=== PATIENT | female | born 1980 | race Caucasian/White ===

== ENCOUNTER 2022-08-06 08:40 | Outpatient (CLI) | payer OTHER, SELFPAY ==
[2022-08-06 18:39] LABS: Alanine Aminotransferase 34 U/L (6-35); Albumin Level 4.3 g/dL (3.5-5.1); Alkaline Phosphatase 65 U/L (38-126); Anion Gap 6 mmol/L (8-16); Aspartate Amino Transferase 32 U/L (14-36); Bilirubin,Total 0.5 mg/dL (0.2-1.3); Blood Urea Nitrogen 17 mg/dL (7-17); Calcium 8.7 mg/dL (8.4-10.2); Carbon Dioxide 26 mmol/L (22-30); Chloride 107 mmol/L (98-107); Cholesterol 191 mg/dL (0-200); Estimated Glomerular Filt Rate > 60; Glucose 110 mg/dL (65-110); HDL Direct 36 mg/dL; Potassium 3.8 mmol/L (3.4-5.0); Sodium 139 mmol/L (137-145); Triglycerides 240 mg/dL (<150)
[2022-08-06 18:50] LABS: LDL Cholesterol Direct 114 mg/dL
[2022-08-06 19:24] LABS: Basophils Absolute Auto 0.1 K/mm3 (0.0-0.1); Basophils Percent Auto 0.8 % (0.2-1.2); Eosinophils Absolute Auto 0.3 K/mm3 (0-0.3); Hematocrit 41.7 % (37.0-47.0); Immature Granulocyte Absolute 0.07 K/mm3 (0.00-0.031); Immature Granulocyte Percent A 0.9 % (0-0.5); Lymphocytes Absolute Auto 2.15 K/mm3 (0.9-3.2); Mean Corpuscular HGB Conc 31.2 g/dl (32-36); Mean Corpuscular Hemoglobin 27.5 pg (26-34); Mean Corpuscular Volume 88.2 fl (80-100); Mean Platelet Volume 10.1 fl (7.4-10.4); Monocytes Absolute Auto 0.8 K/mm3 (0.1-0.6); Monocytes Percent Auto 9.7 % (2.6-8.5); Neutrophils Absolute Auto 4.6 K/mm3 (1.3-6.7); Neutrophils Percent Auto 57.6 % (45.5-73.1); Platelet Count Result 297 k/mm3 (150-375); Red Blood Count 4.73 M/mm3 (4.2-5.4)
[2022-08-06 19:28] LABS: Hemoglobin A1C 5.9 % (<5.7)
== END 2022-08-06 08:41 | disposition home or self-care (01) ==
LOC: ANHGOSHLAB 08:41
PROVIDERS: PCP Family Medicine; Visit Provider Physician Assistant
DX: E03.9 Hypothyroidism, unspecified (principal); E04.0 Nontoxic diffuse goiter; E66.9 Obesity, unspecified; E78.2 Mixed hyperlipidemia; I10 Essential (primary) hypertension
CPT/HCPCS: 36415; 80053; 80061; 83036; 84443; 85025

== ENCOUNTER → 2023-01-01 08:53 | Outpatient (CLI) | payer OTHER, SELFPAY ==
--- NOTE | ~2023-01-01 | XR_ITS ---
XR hip RT min 2V 01/01/2023 09:16 Indication: Right hip pain Procedure: 2 views right hip Comparison: 06/04/2018 Findings: Moderate osteoarthritis the right hip. No fracture or traumatic malalignment. No significan t soft tissue abnormality. No foreign bodies. There is an IUD in the pelvis. Impression: 1: Moderate osteoarthritis of the right hip. Reviewed, dictated and finalized at location B. Impression: 1: Moderate osteoarthritis of the right hip.
--- NOTE | ~2023-01-01 | XR_ITS ---
EXAMINATION: XR lumbar spine 2-3V DATE: 01/01/2023 09:16 INDICATION: Right hip pain. TECHNIQUE: 3 views of lumbar spine were obtained. COMPARISON: None. FINDINGS: There is 7 degrees dextrocurvature of lumbar spine. Vertebral body heights are normal. Inte rvertebral disc heights are normal. There are endplate osteophytes at most levels. There is multileve l facet joint osteoarthritis, severe at multiple levels in lumbar spine. There is an intrauterine dev ice in expected position. Surgical clips in the right upper quadrant are likely from cholecystectomy. IMPRESSION: 1. Mild lumbar spondylosis. Reviewed, dictated and finalized at location E. IMPRESSION: 1. Mild lumbar spondylosis.
== END ==
PROVIDERS: PCP Family Medicine; Visit Provider Physician Assistant
DX: M16.11 Unilateral primary osteoarthritis, right hip (principal); M43.06 Spondylolysis, lumbar region
CPT/HCPCS: 72100; 73502

== ENCOUNTER 2023-01-14 15:49 | Outpatient (RCR) | payer OTHER, SELFPAY ==
--- NOTE | 2023-01-14 17:06 | PTOPEVAL1 ---
Assessment and note entered by Piedad Springer DPT Evaluation Information Diagnosis low back pain, R hip pain Onset 01/01/23 Subjective Information Patient reports in November she started having increased low back pain with pain down the back of the R LE. She reports pain radiates down to the lateral R foot with numbness present. 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 Pain is worse with sitting for long periods of time, sleeping, driving, and standing. Prior to November she had occasional R hip and low back pain but reports it has not been this severe. Reported Pain Level Pain Score 2,4: Self Report Assessment PT Clinical Summary Patient is a 42 year old female who presents to PT with lower back and R hip pain. Patient demonstrates positive R slump test, tenderness to the R piriformis and decreased strength of the R LE impairing her ability to sleep, sit at her desk , ambulate prolonged periods and complete house hold tasks. She would benefit from skilled PT to address impairments and return to PLOF. Plan of Care Interventions Electrical Stimulation,Gait Training,Hot Pack/Cold Pack,Manual Therapy,Mechanical Traction,Neuro Re- education,Patient/Caregiver Educati,Therapeutic Activities,Therapeutic Exercise PT Services Indicated Yes Treatment Frequency and 2x weekly for 10 visits Duration These treatments will address the objective and functional deficits as defined above. The patient will be advanced safely and appropriately in order for the patient to progress towards his/her prior level of function. Additional exercises will be introduced and as well as a comprehensive home exercise program upon discharge, if needed, ?to ensure carryover of functional gains achieved in the clinic. This treatment plan has been reviewed and agreement upon by the patient.
--- NOTE | 2023-02-18 16:44 | OPREHPOC ---
Outpatient Therapy Plan of Care This is a Multidisciplinary Plan of Care that may contain components documented by all disciplines (PT, OT, and ST.) PT Problem 1 PT Problem #1 Knowledge Deficit PT Goal 1 Goal Patient to demonstrate independence with HEP Target Visit 5 Progress Met PT Problem 2 PT Problem #2 Pain PT Goal 1 Goal 1. patient to report highest pain at 2/10 2. 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 Patient to improve LEFS by 20% 2. Patient to improve ability to sit at her desk for >2 hours without increase in low back pain Progress Not Met
--- NOTE | 2023-02-18 16:45 | PTOPDC ---
Assessment and note entered by Piedad Springer DPT Evaluation Information Assessment Status Discharge Diagnosis low back pain, R hip pain Onset 01/01/23 Subjective Information Patient continues to report pain is worse at night . She reports she also is only about to sit for ~ 10 minutes before pain starts. She is independent with HEP. She sees a neurosuregon on 02/22/23. Reported Pain Level Pain Score 2,2: Self Report Assessment PT Clinical Summary Mrs. Honeycutt was seen for 12 visits of skilled PT. Patient did not meet set goals during POC. She reports continued pain with sleeping and sitting at her desk for work. Patient did have an MRI that showed a disc extrusion and will see a neurosuregon on 02/22/23. She is independent with HEP. At this time she will be discharged due to limited progress towards goals. Plan of Care PT Services Indicated No
== END 2023-02-18 14:05 | disposition home or self-care (01) ==
LOC: CHSPT 15:49
PROVIDERS: Visit Provider Physician Assistant
DX: M54.16 Radiculopathy, lumbar region (principal)
CPT/HCPCS: 97012; 97014; 97110; 97140; 97161; G0283

== ENCOUNTER 2023-01-23 13:32 | Outpatient (CLI) | payer OTHER, SELFPAY ==
--- NOTE | ~2023-01-23 | MR_ITS ---
EXAMINATION: MR lumbar spine wo con DATE: 01/23/2023 14:15 INDICATION: Radiculopathy, lumbar region. TECHNIQUE: Magnetic resonance imaging (MRI) of the lumbar spine was performed without intravenous con trast. Sequences included sagittal T2-weighted FSE, sagittal T2-weighted FS FSE, sagittal T1-weighted FSE, and axial T2-weighted FSE. COMPARISON: Lumbar spine radiographs 01/01/2023 FINDINGS: There is 4 degrees dextrocurvature of lumbar spine. Vertebral body heights and intervertebr al disc heights are normal. The distal spinal cord signal intensity is normal. The conus medullaris i s at L1-L2. The following disc levels are specifically discussed: L1-L2: The disc does not extend beyond the endplate margin. There is severe bilateral facet joint ost eoarthritis. There is no neural foraminal stenosis. There is no central canal stenosis. L2-L3: The disc does not extend beyond the endplate margin. There is severe bilateral facet joint ost eoarthritis. There is no neural foraminal stenosis. There is no central canal stenosis. L3-L4: There is a right foraminal protrusion. There is severe bilateral facet joint osteoarthritis. T here is mild bilateral neural foraminal stenosis. There is no central canal stenosis. L4-L5: The disc is mildly bulging and has an annular fissure. There is severe bilateral facet joint o steoarthritis. There is mild bilateral neural foraminal stenosis. There is no central canal stenosis. L5-S1: There is a right subarticular zone extrusion with mass effect on right S1 nerve root in right lateral recess. There is severe bilateral facet joint osteoarthritis. There is mild bilateral neural foraminal stenosis. There is mild central canal stenosis. There is severe stenosis of right lateral r ecess. IMPRESSION: 1. Extrusion at L5-S1 with mass effect on right S1 nerve root in right lateral recess. 2. Otherwise mild lumbar spondylosis. Reviewed, dictated and finalized at location E. [employer]IC
== END 2023-01-23 13:33 | disposition home or self-care (01) ==
PROVIDERS: PCP Family Medicine; Visit Provider Physician Assistant
DX: M47.26 Other spondylosis with radiculopathy, lumbar region (principal)
CPT/HCPCS: 72148

== ENCOUNTER 2023-12-17 07:53 | Outpatient (CLI) | payer OTHER, SELFPAY ==
[2023-12-17 17:09] LABS: Alanine Aminotransferase 22 U/L (6-35); Albumin Level 4.4 g/dL (3.5-5.1); Alkaline Phosphatase 69 U/L (38-126); Anion Gap 11 mmol/L (4-12); Aspartate Amino Transferase 32 U/L (14-36); Bilirubin,Total 0.5 mg/dL (0.2-1.3); Blood Urea Nitrogen 17 mg/dL (7-17); Calcium 9.8 mg/dL (8.4-10.2); Carbon Dioxide 23 mmol/L (22-30); Chloride 106 mmol/L (98-107); Cholesterol 200 mg/dL (0-200); Estimated Glomerular Filt Rate > 60; Glucose 76 mg/dL (65-110); HDL Direct 43 mg/dL; Potassium 4.4 mmol/L (3.4-5.0); Sodium 140 mmol/L (137-145); Triglycerides 232 mg/dL (<150)
[2023-12-17 17:17] LABS: LDL Cholesterol Direct 107 mg/dL
[2023-12-17 17:22] LABS: Hemoglobin A1C 6.1 % (<5.7)
== END 2023-12-17 07:54 | disposition home or self-care (01) ==
LOC: ANHGOSHLAB 07:54
PROVIDERS: PCP Family Medicine; Visit Provider Family Medicine
DX: R73.03 Prediabetes (principal); E03.9 Hypothyroidism, unspecified
CPT/HCPCS: 36415; 80053; 80061; 83036; 84443

== ENCOUNTER 2024-01-06 14:12 | Outpatient (CLI) | payer OTHER, SELFPAY ==
--- NOTE | ~2024-01-06 | MM_ITS ---
EXAMINATION: MM screening pavel BI w cal HISTORY: Screening mammogram TECHNIQUE: Craniocaudal and mediolateral oblique 3-D tomosynthesis images were obtained and synthetic 2-D images were generated. CAD analysis was submitted and interpreted. COMPARISON: 10/19/2012 BREAST PARENCHYMAL COMPOSITION:Not Dense. There are scattered areas of fibroglandular density. FINDINGS: No suspicious mass, calcification, or architectural distortion are identified in either monica ast to suggest malignancy. There has been no suspicious interval change. IMPRESSION: No mammographic evidence of malignancy. Recommend routine screening mammography in one year. BI-RADS Category 1: Negative Reviewed, dictated and finalized at location .
== END 2024-01-06 14:13 | disposition home or self-care (01) ==
LOC: MICIMG 14:13
PROVIDERS: PCP Family Medicine; Visit Provider Family Medicine
DX: Z12.31 Encounter for screening mammogram for malignant neoplasm of breast (principal)
CPT/HCPCS: 77063; 77067

== ENCOUNTER 2024-04-18 07:52 | Outpatient (CLI) | payer OTHER, SELFPAY ==
--- OUTSIDE RECORDS SUMMARY | 2024-04-18 08:15 | XMS_ITS | Clinical Summary ---
Author Organization 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 Phone Unavailable Primary Care Provider Unavailabl e Social History Tobacco Use Types Packs/Day Years Used Date Smoking Tobacco: Never Assessed Comments Unknown Sex and Gender Information Value Date Recorded Sex Assigned at Not on file Legal Sex Female 5:53 PM [employer] Gender Identity Not on file Sexual Orientation Not on file Plan of Treatment Health Maintenance Due Date Last Done Comments Cervical Cancer Screening Pa p Smear (Age 30 to 64) Every 3 Years 1978 Colorectal Cancer Screening Colonoscopy (10 Years) 1978 Annual Physical 1981 Hepatitis C 1996 DTaP, Tdap and Td Vaccines ( 1 - Tdap) 1997 Hepatitis B Vaccines (1 of 3 - 19+ 3-dose series) 1997 Cervical Cancer Screening Pa p with HPV Testing (Age 30 to 64) Every 5 Years 2008 Cervical Cancer Screening with HPV 2008 Mammogram Screening 2018 COVID-19 Vaccine (2023-2 5 season) 2023 Influenza Adult (#1) 2023 HPV Vaccines Aged Out No longer eligi ble based on patient's age to complete this topic Meningococcal B Vaccine Aged Out No l onger eligible based on patient's age to complete this topic Meningococcal Vaccine Aged Out No shantel avi eligible based on patient's age to complete this topic Pneumococcal Vaccine: Pediat rics (0 to 5 Years) and At-Risk Patients (6 to 64 Years) Aged Out No longer eligible b ased on patient's age to complete this topic RSV Immunizations Under 20 Months Aged Out No longer eligible based on patient's age to complete this topic
[2024-04-18 21:30] LABS: Creatinine Urine 130.8 mg/dL
[2024-04-18 21:33] LABS: MALB Creatinine Ratio 19.3 mg/g (0-30); Microalbumin Urine Random 25.3 mg/L (0-16.7)
[2024-04-19 00:04] LABS: Alanine Aminotransferase 30 U/L (6-35); Alkaline Phosphatase 53 U/L (38-126); Aspartate Amino Transferase 26 U/L (14-36); Bilirubin,Total 0.5 mg/dL (0.2-1.3); Blood Urea Nitrogen 15 mg/dL (7-17); Carbon Dioxide 21 mmol/L (22-30); Cholesterol 187 mg/dL (0-200); Estimated Glomerular Filt Rate > 60; Glucose 70 mg/dL (65-110); HDL Direct 50 mg/dL; Triglycerides 151 mg/dL (<150)
[2024-04-19 00:06] LABS: LDL Cholesterol Direct 121 mg/dL
[2024-04-19 00:25] LABS: Hemoglobin A1C 5.8 % (<5.7)
[2024-04-19 01:37] LABS: Albumin Level 4.2 g/dL (3.5-5.1); Calcium 9.8 mg/dL (8.4-10.2); Potassium 4.1 mmol/L (3.4-5.0); Sodium 141 mmol/L (137-145)
[2024-04-19 04:26] LABS: Anion Gap 12 mmol/L (4-12); Chloride 108 mmol/L (98-107)
== END 2024-04-18 07:53 | disposition home or self-care (01) ==
LOC: ANHGOSHLAB 07:53
PROVIDERS: PCP Family Medicine; Visit Provider Family Medicine
DX: R73.03 Prediabetes (principal)
CPT/HCPCS: 36415; 80053; 80061; 82043; 82607; 83036

== ENCOUNTER 2024-10-16 08:01 | Outpatient (CLI) | payer OTHER, SELFPAY ==
--- OUTSIDE RECORDS SUMMARY | 2024-10-16 08:04 | XMS_ITS | Clinical Summary ---
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
[2024-10-16 13:22] LABS: Alanine Aminotransferase 28 U/L (6-35); Albumin Level 4.3 g/dL (3.5-5.1); Alkaline Phosphatase 52 U/L (38-126); Anion Gap 9 mmol/L (4-12); Aspartate Amino Transferase 44 U/L (14-36); Bilirubin,Total 0.5 mg/dL (0.2-1.3); Blood Urea Nitrogen 12 mg/dL (7-17); Calcium 9.3 mg/dL (8.4-10.2); Carbon Dioxide 23 mmol/L (22-30); Chloride 105 mmol/L (98-107); Cholesterol 192 mg/dL (0-200); Estimated Glomerular Filt Rate > 60; Glucose 88 mg/dL (65-110); HDL Direct 48 mg/dL; Potassium 4.3 mmol/L (3.4-5.0); Sodium 137 mmol/L (137-145); Total Protein 7.2 g/dL (6.3-8.2); Triglycerides 173 mg/dL (<150)
[2024-10-16 13:59] LABS: Thyroid Stimulating Hormone 2.530 uIU/mL (0.465-4.680)
[2024-10-16 14:18] LABS: Vitamin B12 951.0 pg/mL (239-931)
[2024-10-16 14:33] LABS: Hemoglobin A1C 5.8 % (<5.7)
[2024-10-16 17:08] LABS: MALB Creatinine Ratio 10.2 mg/g (0-30)
== END 2024-10-16 08:02 | disposition home or self-care (01) ==
LOC: ANHGOSHLAB 08:02
PROVIDERS: PCP Family Medicine; Visit Provider Family Medicine
DX: R73.03 Prediabetes (principal); E03.9 Hypothyroidism, unspecified
CPT/HCPCS: 36415; 80053; 80061; 82043; 82607; 83036; 84443

== ENCOUNTER 2024-11-24 14:41 | Emergency (ER) | payer OTHER, SELFPAY ==
[2024-11-24 14:50] VITALS: BP 165/94; PULSE 85; RESP 16; TEMP 36.9; O2SAT 100
[2024-11-24] MEDS: MECLIZINE HCL 25 MG TABLET 50 MG PO (15:10)
--- NOTE | 2024-11-24 15:11 | ED_ITS ---
HPI - Dizziness General Chief Complaint: Dizziness Stated Complaint: Vertigo/nausea Time Seen by Provider: 11/24/24 14:53 Source: patient and RN notes reviewed Mode of arrival: ambulatory Limitations: no limitations History of Present Illness HPI Narrative: Patient presents today complaining of brief intermittent episodes of dizziness x1 week. Last night around 0, she had a sudden onset dizziness spell that h as been persisting and today. Feels as if the room is spinning. This is exacerbated with head movement and does decreased somewhat when she is lying flat. This has caused significant nausea and she did vomit a few times last night. Denies headache, chest pain, shortness of breath, vision changes, palpitations or racing heart, or any additional symptoms. Patient states she called her PCP who instructed her to take some meclizine, but she wanted to come get checked out in urgent care first. History of hypertension and has not taken her lisinopril today due to nausea. BP on arrival is 165/94. Related Data Home Medications ?Medication ?Instructions ?Recorded ?Confirmed ?Last Taken ?Type cyanocobalamin (vitamin B-12) 500 500 mcg PO DAILY 10/18/24 Unknown History mcg tablet Allergies Allergy/AdvReac Type Severity Reaction Status Date / Time No Known Allergies Allergy Verified 11/24/24 14:51 [facility] Past Medical History Medical History Tooth infection Dyskinesia of esophagus Vasovagal syncope Meralgia paresthetica of right side Family History Family History Mother Family history of thyroid disease Sibling Family history of thyroid disease Grandparent Diabetes mellitus Family history of malignant neoplasm Father Family history of cardiovascular disease Acute myocardial infarction Social History Social History Social History: Caffeine- coffee daily Smoking status: Never smoker Alcohol intake: current Alcohol use details: occasionally Substance use: never Substance use type: does not use Do You Feel Safe in your Home?: Yes Lack of Transportation: No Lack of Food: Never True Current Housing: I Have Housing Concerned About Future Housing: No Difficulty Paying Gas/Electric Bills: No Difficulty Paying for Meds: No Currently Unemployed: No Education: Associate Degree Difficulty w/ Childcare or Family Care: No Comments At time of signature, I have reviewed and agree with nursing past medical, surgical, social and family history unless otherwise noted. Please see nursing chart for further information. There is no relevant family history pertinent to the presenting complaint Exam Narrative: GENERAL: Well-appearing, well-nourished, and in no acute distress. HEAD: Normocephalic, atraumatic. EYES: EOMI. PERRL. No nystagmus noted No redness or drainage. Conjunctivae normal. ENT: Mucous membranes pink and moist. Nares clear. No rhinorrhea. TMs normal bilaterally. NECK: Normal AROM. Supple. No lymphadenopathy. CHEST: No respiratory distress. Clear to auscultation. HEART: Regular rate and rhythm. No murmur appreciated. Normal peripheral pulses. EXTREMITIES: Normal range of motion. No edema. 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 5/5 strength in BLE. SKIN: Warm, dry, no rash. Capillary refill normal. Normal skin turgor. NEURO: No focal deficits. Alert and oriented x3. Gait steady. PSYCH: Normal affect. No signs of depression or anxiety. Course Course Emergency Course: 1515- Patient given a dose of meclizine. 1544- Patient states she does feel a bit better. Level of Care: Express Care Visit Vital Signs Vital signs: Vital Signs Temperature 98.4 F 11/24/24 14:50 Pulse Rate 85 11/24/24 14:50 Respiratory Rate 16 11/24/24 14:50 Blood Pressure 165/94 H 11/24/24 14:50 Pulse Oximetry 11/24/24 14:50 Temperature 98.4 F 11/24/24 14:50 Pulse Rate 85 11/24/24 14:50 Respiratory Rate 16 11/24/24 14:50 Blood Pressure 165/94 H 11/24/24 14:50 Pulse Oximetry 100 11/24/24 14:50 Reviewed MDM - Dizziness MDM Narrative Medical decision making narrative: 44-year-old female patient presents today complaining of intermittent brief episodes of dizziness over the past week with sudden episode that started last night that has been a bit persistent. She also had a few episodes of vomiting last night. States the room is spinning. Dizziness is worse with head movement. No OTC treatment prior to arrival. No additional symptoms. Vital signs stable. Patient was given 50 mg of meclizine while here at [facility] and after 30 minute states she does feel a bit better. Recommend continuing meclizine at home over the weekend to see if symptoms can resolved. Recommend following up with PCP next week if symptoms do not continue to improve. Strict ED precautions given. Differential Diagnosis Differential diagnosis: Likely benign paroxysmal positional vertigo and other (Meniere's disease, migraine) Critical Care Time Critical Care Time Critical Care Time: No Discharge Plan Discharge Clinical Impression: Vertigo Patient Disposition: Home Condition: Stable Instructions: Vertigo (ED), Dizziness (ED) Additional Instructions: Please take meclizine as directed on package. He had been given your 1st dose today at [facility]. Rest and stay hydrated. Follow-up with your PCP next week if symptoms persist. As discussed, please go to the ER immediately if symptoms worsen to include headache, vision changes, chest pain or shortness of breath. Your blood pressure was elevated above 120/80 today at Urgent Care. This puts you above the threshold for follow up. Please schedule a followup visit with your personal physician as soon as possible, for further evaluation and treatment. Even blood pressure exceeding 120/80 may indicate pre-hypertension. Patient Language: Urdu Prescriptions: No Action cyanocobalamin (vitamin B-12) 500 mcg tablet 500 mcg PO DAILY metformin 500 mg tablet extended release 24 hr See Rx Instructions PO .COMPLEX Qty: 270 2RF Rx Instructions: orally ; 1 po after breakfast, 2 po after dinner amitriptyline 10 mg tablet 20 mg PO .Qhs Qty: 90 1RF levothyroxine 25 mcg tablet 25 mcg PO DAILY Qty: 90 1RF lisinopril 10 mg tablet See Rx Instructions .ROUTE .COMPLEX Qty: 90 1RF Dose Instruction: TAKE ONE TABLET BY MOUTH DAILY Rx Instructions: TAKE ONE TABLET BY MOUTH DAILY Follow-up/Referrals: Nehal Walls MD [Primary Care Provider, Family Practice] Time of Disposition: 15:46
== END 2024-11-24 15:50 | disposition home or self-care (01) ==
PROVIDERS: Emergency Provider Nurse Practitioner; PCP Family Medicine
DX: R42 Dizziness and giddiness (principal); I10 Essential (primary) hypertension
CPT/HCPCS: 99213; A9270; G0463